=== PATIENT | male | born 1965 | race Caucasian/White ===

== ENCOUNTER 2016-06-04 13:18 | Emergency (ER) | payer MEDICAID, OTHER ==
[~2016-06-04] VITALS: Ht 188 cm; Wt 104.3 kg
[2016-06-04 13:18] VITALS: BP_SYST 155
[2016-06-04] MEDS ORDERED: IBUPROFEN 800 MG TABLET PO ONE (13:45)
[2016-06-04] MEDS ORDERED: HYDROcodone/ACETAMIN 10-325 MG TAB PO ONE (13:45)
[2016-06-04 15:20] VITALS: BP_SYST 155
== END 2016-06-04 15:20 | disposition home or self-care (01) ==
LOC: SED 13:18
DX: S33.5XXA Sprain of ligaments of lumbar spine, initial encounter (principal); S43.401A Unspecified sprain of right shoulder joint, initial encounter; E11.9 Type 2 diabetes mellitus without complications; I10 Essential (primary) hypertension; E78.5 Hyperlipidemia, unspecified; V89.2XXA Person injured in unspecified motor-vehicle accident, traffic, initial encounter; Y93.89 Activity, other specified; Y92.410 Unspecified street and highway as the place of occurrence of the external cause; Y99.8 Other external cause status
CPT/HCPCS: 71010; 72100-TC; 99284